=== PATIENT | female | born 1965 | race Caucasian/White ===

== ENCOUNTER 2019-04-02 09:33 | Day surgery (SDC) | payer MEDICAID ==
[~2019-04-02 09:33] MED LIST: Propofol 200 MG/20 ML SDV ONE; Sodium Chloride 0.9% 10 ML Syringe FLUSH PRN
[2019-04-02] MEDS: Lactated Ringers 1,000 ML IV SCH (09:48)
[2019-04-02] MEDS ORDERED: Midazolam 1 MG/ML 2 ML SDV ONE (10:01)
[2019-04-02] MEDS ORDERED: Ondansetron 4 MG/2 ML SDV IVPUSH ONE (10:10)
--- NOTE | 2019-04-02 10:35 | PCM.HPR ---
H & P Addendum review - H & P Addendum Review Date of Original H & P: 03/19/19 Date Reviewed: 04/02/19 Time Reviewed: 09:45 Patient was Examined: No Changes
--- NOTE | 2019-04-02 10:36 | PCM.OPNOTE ---
- General Post-Op/Procedure Note Date of Surgery/Procedure: 04/02/19 Operative Procedure(s): EGD and Colonoscopy Findings: Both Normal Pre Op Diagnosis: Epigastric Pain, colon screening Post-Op Diagnosis: Same Anesthesia Technique: BELLO Primary Surgeon: Balbir Singh Anesthesia Provider: Hina Jenkins Complications: None Condition: Good
[2019-04-02] MEDS ORDERED: Propofol 200 MG/20 ML SDV ONE (12:08)
--- NOTE | 2019-04-02 14:56 | OR ---
Date of Procedure: 04/02/2019 PREOPERATIVE DIAGNOSES: 1. Epigastric pain. 2. Colon screening. POSTOPERATIVE DIAGNOSES: 1. Normal esophagogastroduodenoscopy. 2. Normal colonoscopy. PROCEDURES: 1. Esophagogastroduodenoscopy. 2. Colonoscopy. ANESTHESIA: IV sedation. DESCRIPTION OF PROCEDURE: The patient was brought to the procedure room where she was placed on the left side and IV sedation administered. Oral bite block was placed and the upper endoscope advanced into the esophagus under direct vision without difficulty. Vocal cords were viewed and were normal. The scope was advanced to the third portion of the duodenum. Duodenum and pylorus were normal. Antrum and body of the stomach were normal. Retroflexion reveals a normal-appearing fundus. No hiatal hernia was present. The squamocolumnar junction appeared normal. Air was removed from the stomach and the scope withdrawn through the remaining esophagus which appeared normal. The patient tolerated this portion of the procedure well. Next, colonoscopy was performed after digital rectal exam was done which was normal. Colonoscope was inserted and advanced through a tortuous colon with some difficulty requiring pressure on the abdomen to reach the cecum. Cecum was confirmed by identifying the appendiceal lumen and the ileocecal valve. Prep was good and surfaces were well visualized. Upon withdrawing the scope, the ascending, transverse, and descending colon were normal in appearance. Sigmoid colon was tortuous, but otherwise normal. Rectum was normal and retroflexion was normal. Air was removed and the scope withdrawn. The patient tolerated the procedure well and returned to Recovery in stable condition. Recommend routine colon screening again in 10 years. SAMANTHA BRAY MD /[id number]
== END 2019-04-02 11:38 | disposition home or self-care (01) ==
LOC: LL.SDS 09:33
PROVIDERS: ATTEND Surgery
DX: Z12.11 Encounter for screening for malignant neoplasm of colon (principal); K27.9 Peptic ulcer, site unspecified, unspecified as acute or chronic, without hemorrhage or perforation; R07.9 Chest pain, unspecified; M79.7 Fibromyalgia; E03.9 Hypothyroidism, unspecified; F32.9 Major depressive disorder, single episode, unspecified; Z86.79 Personal history of other diseases of the circulatory system; F17.210 Nicotine dependence, cigarettes, uncomplicated; Z79.899 Other long term (current) drug therapy; Z88.5 Allergy status to narcotic agent
CPT/HCPCS: J2250; J2405; J2704; J7120

== ENCOUNTER 2020-12-10 19:02 | Observation (INO) | payer MEDICAID ==
[2020-12-10] MEDS ORDERED: Sodium Chloride 0.9% 1,000 ML IV ONE ×3 (19:24→20:30)
[2020-12-10] MEDS ORDERED: Ondansetron 4 MG/2 ML SDV IVPUSH ONE (19:26)
[2020-12-10] MEDS ORDERED: Ketorolac 30 MG/ML SDV IVPUSH ONE (19:30)
[2020-12-10] MEDS ORDERED: Morphine 2 MG/ML SYRINGE IVPUSH ONE (20:05)
[2020-12-10] MEDS: Sodium Chloride 0.9% 10 ML Syringe FLUSH SCH ×2 (20:06→22:11)
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
[2020-12-10 20:15] LABS: CHLORIDE,CL 103 mmol/L (98-107); SODIUM,NA 142 mmol/L (136-145)
[2020-12-10] MEDS ORDERED: Acetaminophen 325 MG Tab PO PRN (21:04)
[2020-12-10] MEDS ORDERED: Ketorolac 30 MG/ML SDV IVPUSH PRN ×2 (21:04→21:12)
[2020-12-10] MEDS ORDERED: Ondansetron 4 MG/2 ML SDV IVPUSH PRN (21:04)
[2020-12-10] MEDS ORDERED: LORazepam 2 MG/ML SDV IV PRN (21:04)
[2020-12-10] MEDS ORDERED: Cyclobenzaprine 10 MG Tab PO PRN (21:10)
[2020-12-10] MEDS ORDERED: Morphine 2 MG/ML SYRINGE IVPUSH PRN (21:12)
[2020-12-10] MEDS ORDERED: Loperamide 2 MG Tab PO ONE (21:13)
[2020-12-10] MEDS ORDERED: Loperamide 2 MG Tab PO PRN (21:13)
[2020-12-10] MEDS ORDERED: Prochlorperazine 10 MG/2 ML SDV IVPUSH ONE (21:14)
[2020-12-10] MEDS: Sodium Chloride 0.9% 1,000 ML IV SCH (22:11)
[2020-12-10] MEDS: Pregabalin 75 MG Cap PO PRN (22:37)
[2020-12-11] MEDS: Sodium Chloride 0.9% 10 ML Syringe FLUSH SCH (05:10)
[2020-12-11] MEDS: Sodium Chloride 0.9% 1,000 ML IV SCH (05:14)
[2020-12-11] MEDS ORDERED: Levothyroxine 100 MCG Tab PO SCH (07:30)
[2020-12-11] MEDS ORDERED: DULoxetine 30 MG Cap PO SCH (08:00)
[2020-12-11 08:02] LABS: CHLORIDE,CL 110 mmol/L (98-107); SODIUM,NA 145 mmol/L (136-145)
[2020-12-11] MEDS: Pregabalin 75 MG Cap PO PRN (08:30)
[2020-12-11] MEDS: busPIRone 15 MG Tab PO SCH ×2 (08:31→12:47)
--- NOTE | 2020-12-11 12:28 | PCM.DCSUM1 ---
Discharge Summary - Hospital Course Brief History: Patient admitted for further treatment of dehydration/abdominal pain/diarrhea Diagnosis: Stroke: No - Discharge Data Discharge Date: 12/11/20 Discharge Disposition: Home, Self-Care 01 Condition: Good - Referral to Home Health Primary Care Physician: ZORAIDA Rosenberg - Discharge Diagnosis/Problem(s) (1) Abdominal pain SNOMED Code(s): 99059316 ICD Code: R10.9 - UNSPECIFIED ABDOMINAL PAIN Status: Acute Priority: High Current Visit: Yes Onset Date: ~12/08/20 Problem Details: Normal WBC and unremarkable abdominal/pelvic CT. Accompanying diarrhea/emesis. Suspect at this time etiology most likely viral given history/exam/workup. Diarrhea stopped after patient received Imodium. Unable to collect stool for culture. Abdominal pain much improved today. Patient says she is back to her "baseline fibromyalgia" pain and would like to be discharged. Qualifiers: Abdominal location: generalized Qualified Code(s): R10.84 - Generalized abdominal pain (2) Diarrhea SNOMED Code(s): 09958615 ICD Code: R19.7 - DIARRHEA, UNSPECIFIED Status: Acute Priority: High Current Visit: Yes Onset Date: ~12/08/20 Problem Details: Nonbloody. Negative for occult blood. Immediate improvement with Imodium/no further bowel movements observed. Unable to collect sample for stool culture. Qualifiers: Diarrhea type: unspecified type Qualified Code(s): R19.7 - Diarrhea, unspecified (3) Dehydration SNOMED Code(s): 42302413 ICD Code: E86.0 - DEHYDRATION Status: Acute Priority: High Current Visit: Yes Problem Details: Unable to keep much of any PO intake down for several days. Received IV fluids. Lactic acid normalized after fluid bolus. (4) Fibromyalgia SNOMED Code(s): 536485212 ICD Code: M79.7 - FIBROMYALGIA Status: Chronic Priority: Medium Current Visit: Yes Problem Details: On multiple medications for this. Has been stable. (5) Hypothyroid SNOMED Code(s): 79755048 ICD Code: E03.9 - HYPOTHYROIDISM, UNSPECIFIED Status: Chronic Priority: Low Current Visit: No Qualifiers: Hypothyroidism type: unspecified Qualified Code(s): E03.9 - Hypothyroidism, unspecified - Patient Summary/Data Hospital Course: Patient received medication for nausea, pain, and diarrhea. Diarrhea stopped. Abdominal pain is much improved. Patient feels that she is back to her usual level of daily fibromyalgia-related pain. Would like to go home. BPs have run in lower range but she is not exhibiting any associated symptoms of hypotension. Unable to obtain stool for culture. Suspect most likely had viral gastroenteritis but recommend stool be tested if symptoms return. To follow up as needed. - Patient Instructions Diet: Usual Diet as Tolerated Activity: As Tolerated Showering/Bathing: May Shower Notify Provider of: Fever, Increased Pain, Nausea and/or Vomiting Other/Special Instructions: Rest. Stay hydrated. Advance activity and diet as tolerated. Return to ER or to clinic if symptoms return/new problems develop. - Discharge Plan *PRESCRIPTION DRUG MONITORING PROGRAM REVIEWED*: Not Applicable *COPY OF PRESCRIPTION DRUG MONITORING REPORT IN PATIENT MARCI: Not Applicable Home Medications: Home Meds Celecoxib [CeleBREX] 200 mg PO BID PRN 04/02/19 [History] DULoxetine HCl [Cymbalta] 60 mg PO DAILY 04/02/19 [History] Esomeprazole Magnesium 40 mg PO DAILY 04/02/19 [History] Estrogens, Conjugated [Premarin] 0.3 mg PO DAILY 04/02/19 [History] Levothyroxine [Synthroid] 100 mcg PO ACBREAKFAST 04/02/19 [History] Zolpidem [Ambien] 10 mg PO BEDTIME 04/02/19 [History] traMADol HCl [Tramadol HCl] 50 mg PO Q6H PRN 04/02/19 [History] Melatonin 5 - 10 mg PO BEDTIME 02/04/20 [History] Naproxen Sodium [Aleve] 440 mg PO BID PRN 02/04/20 [History] Cyclobenzaprine [Flexeril] 5 mg PO BID PRN 30 Days #60 tab 02/23/20 [Rx] Ondansetron [Zofran ODT] 4 mg PO Q6H PRN 30 Days #120 tab.dis 07/05/20 [Rx] Pregabalin [Lyrica] 75 mg PO TID PRN 30 Days #135 cap 08/01/20 [Rx] busPIRone [Buspar] 10 mg PO TID 30 Days #90 tab 08/01/20 [Rx] Magnesium 250 mg PO BID 12/10/20 [History] Vitamin B Complex 1 cap PO BEDTIME 12/10/20 [History] Forms: ED Department Discharge Referrals: Neyda Augustine PA [Primary Care Provider] - - Discharge Summary/Plan Comment DC Time >30 min.: No - General Info Date of Service: 12/11/20 Admission Dx/Problem (Free Text: Nausea/emesis/diarrhea/dehydration/abdominal pain Subjective Update: Feels much improved. No further bowel movements. Abdominal pain much better. No emesis. Functional Status: Reports: Pain Controlled, Tolerating Diet, Ambulating, Urinating. Denies: New Symptoms Numeric/FACES Score: 4 - Review of Systems General: Reports: Fatigue. Denies: Fever, Malaise, Chills, Night Sweats HEENT: Denies: Ear Pain, Headaches, Sinus Congestion, Sore Throat Pulmonary: Reports: No Symptoms Cardiovascular: Reports: No Symptoms Gastrointestinal: Reports: Abdominal Pain (much improved), Other (no bowel movement since ER visit). Denies: Difficulty Swallowing, Hematochezia, Melena, Nausea, Vomiting Genitourinary: Denies: Dysuria, Frequency, Pain, Hematuria, Flank Pain Musculoskeletal: Reports: Other (generalized aches she attributes to fibromyalgia) Skin: Reports: No Symptoms Neurological: Reports: No Symptoms Psychiatric: Reports: No Symptoms - Patient Data Vitals - Most Recent: Last Vital Signs Temp 36.8 C 12/11/20 08:00 Pulse 63 12/11/20 08:00 Resp 72 H 12/11/20 08:00 BP 108/76 12/11/20 08:00 Pulse Ox 98 12/11/20 03:40 Weight - Most Recent: 67.67 kg I&O - Last 24 hours: Intake & Output 12/10/20 12/11/20 12/11/20 22:59 06:59 14:59 Intake Total 600 240 Output Total 100 Balance 500 240 Lab Results - Last 24 hrs: Laboratory Results - last 24 hr 12/10/20 12/10/20 12/10/20 Range/Units 19:48 19:48 19:48 WBC 6.8 (4.0-10.2) K/uL RBC 4.31 (3.77-5.09) M/uL Hgb 14.6 (11.7-15.5) g/dL Hct 43.5 (34.0-46.0) % MCV 100.9 H (84.0-98.0) fL MCH 33.9 H (28.2-33.3) pg MCHC 33.6 (31.7-36.0) g/dL RDW 13.0 (11.2-14.1) % Plt Count 177 (150-350) K/uL Neut % (Auto) 48.0 (45.0-80.0) % Lymph % (Auto) 34.0 (10.0-50.0) % [place] % (Auto) 13.5 (2.0-14.0) % Eos % (Auto) 4.1 (0.0-5.0) % Baso % (Auto) 0.4 (0.0-2.0) % Neut # (Auto) 3.28 (1.40-7.00) K/uL Lymph # (Auto) 2.32 (0.50-3.50) K/uL [place] # (Auto) 0.92 (0.00-1.00) K/uL Eos # (Auto) 0.28 (0.00-0.50) K/uL Baso # (Auto) 0.03 (0.00-0.20) K/uL Sodium 142 (136-145) mmol/L Potassium 4.0 (3.5-5.1) mmol/L Chloride 103 (98-107) mmol/L Carbon Dioxide 29.4 (21.0-32.0) mmol/L BUN 8 (7-18) mg/dL Creatinine 0.68 (0.51-1.17) mg/dL Est Cr Clr Drug Dosing 98.84 mL/min Estimated GFR (MDRD) > 60 mL/min Glucose 115 H (70-99) mg/dL Lactic Acid 3.2 H (0.4-2.0) mmol/L Calcium 8.7 (8.5-10.1) mg/dL Magnesium (1.8-2.4) mg/dL Total Bilirubin 0.3 (0.2-1.0) mg/dL AST 24 (15-37) U/L ALT 28 (12-78) U/L Alkaline Phosphatase 70 (46-116) IU/L Troponin I 0.000 (0.000-0.056) ng/mL Total Protein 7.1 (6.4-8.2) g/dL Albumin 3.6 (3.4-5.0) g/dL Amylase 35 (25-115) U/L Lipase 88 (73-393) U/L Specimen Type Urine Color Urine Appearance Urine pH (5.0-9.0) Ur Specific [place] (1.005-1.030) Urine Protein (NEGATIVE) mg/dL Urine Glucose (UA) (NEGATIVE) mg/dL Urine Ketones (NEGATIVE) mg/dL Urine Occult Blood (NEGATIVE) Urine Nitrite (NEGATIVE) Urine Bilirubin (NEGATIVE) Urine Urobilinogen (0.2-1.0) E.U./dL Ur Leukocyte Esterase (NEGATIVE) Urine RBC /HPF Urine WBC /HPF Ur Epithelial Cells /LPF Urine Bacteria (NONE TO FEW) /HPF SARS-CoV-2 RNA (MIMI) (NEGATIVE) 12/10/20 12/11/20 12/11/20 Range/Units 23:15 07:30 07:30 WBC (4.0-10.2) K/uL RBC (3.77-5.09) M/uL Hgb (11.7-15.5) g/dL Hct (34.0-46.0) % MCV (84.0-98.0) fL MCH (28.2-33.3) pg MCHC (31.7-36.0) g/dL RDW (11.2-14.1) % Plt Count (150-350) K/uL Neut % (Auto) (45.0-80.0) % Lymph % (Auto) (10.0-50.0) % [place] % (Auto) (2.0-14.0) % Eos % (Auto) (0.0-5.0) % Baso % (Auto) (0.0-2.0) % Neut # (Auto) (1.40-7.00) K/uL Lymph # (Auto) (0.50-3.50) K/uL [place] # (Auto) (0.00-1.00) K/uL Eos # (Auto) (0.00-0.50) K/uL Baso # (Auto) (0.00-0.20) K/uL Sodium 145 (136-145) mmol/L Potassium 4.1 (3.5-5.1) mmol/L Chloride 110 H (98-107) mmol/L Carbon Dioxide 27.9 (21.0-32.0) mmol/L BUN 8 (7-18) mg/dL Creatinine 0.63 (0.51-1.17) mg/dL Est Cr Clr Drug Dosing 106.68 mL/min Estimated GFR (MDRD) > 60 mL/min Glucose 102 H (70-99) mg/dL Lactic Acid 1.1 (0.4-2.0) mmol/L Calcium 7.6 L (8.5-10.1) mg/dL Magnesium 2.2 (1.8-2.4) mg/dL Total Bilirubin (0.2-1.0) mg/dL AST (15-37) U/L ALT (12-78) U/L Alkaline Phosphatase (46-116) IU/L Troponin I (0.000-0.056) ng/mL Total Protein (6.4-8.2) g/dL Albumin (3.4-5.0) g/dL Amylase (25-115) U/L Lipase (73-393) U/L Specimen Type Urinvoid Urine Color Yellow Urine Appearance Clear Urine pH 7.5 (5.0-9.0) Ur Specific [place] 1.015 (1.005-1.030) Urine Protein Negative (NEGATIVE) mg/dL Urine Glucose (UA) Negative (NEGATIVE) mg/dL Urine Ketones Negative (NEGATIVE) mg/dL Urine Occult Blood Negative (NEGATIVE) Urine Nitrite Negative (NEGATIVE) Urine Bilirubin Negative (NEGATIVE) Urine Urobilinogen 0.2 (0.2-1.0) E.U./dL Ur Leukocyte Esterase Negative (NEGATIVE) Urine RBC 0-5 /HPF Urine WBC 0-5 /HPF Ur Epithelial Cells Few /LPF Urine Bacteria Few (NONE TO FEW) /HPF SARS-CoV-2 RNA (MIMI) (NEGATIVE) 12/11/20 12/11/20 Range/Units 07:30 08:35 WBC 4.0 (4.0-10.2) K/uL RBC 4.01 (3.77-5.09) M/uL Hgb 13.6 (11.7-15.5) g/dL Hct 41.0 (34.0-46.0) % MCV 102.2 H (84.0-98.0) fL MCH 33.9 H (28.2-33.3) pg MCHC 33.2 (31.7-36.0) g/dL RDW 13.1 (11.2-14.1) % Plt Count 131 L (150-350) K/uL Neut % (Auto) 40.2 L (45.0-80.0) % Lymph % (Auto) 39.7 (10.0-50.0) % [place] % (Auto) 14.4 H (2.0-14.0) % Eos % (Auto) 5.2 H (0.0-5.0) % Baso % (Auto) 0.5 (0.0-2.0) % Neut # (Auto) 1.62 (1.40-7.00) K/uL Lymph # (Auto) 1.60 (0.50-3.50) K/uL [place] # (Auto) 0.58 (0.00-1.00) K/uL Eos # (Auto) 0.21 (0.00-0.50) K/uL Baso # (Auto) 0.02 (0.00-0.20) K/uL Sodium (136-145) mmol/L Potassium (3.5-5.1) mmol/L Chloride (98-107) mmol/L Carbon Dioxide (21.0-32.0) mmol/L BUN (7-18) mg/dL Creatinine (0.51-1.17) mg/dL Est Cr Clr Drug Dosing mL/min Estimated GFR (MDRD) mL/min Glucose (70-99) mg/dL Lactic Acid (0.4-2.0) mmol/L Calcium (8.5-10.1) mg/dL Magnesium (1.8-2.4) mg/dL Total Bilirubin (0.2-1.0) mg/dL AST (15-37) U/L ALT (12-78) U/L Alkaline Phosphatase (46-116) IU/L Troponin I (0.000-0.056) ng/mL Total Protein (6.4-8.2) g/dL Albumin (3.4-5.0) g/dL Amylase (25-115) U/L Lipase (73-393) U/L Specimen Type Urine Color Urine Appearance Urine pH (5.0-9.0) Ur Specific [place] (1.005-1.030) Urine Protein (NEGATIVE) mg/dL Urine Glucose (UA) (NEGATIVE) mg/dL Urine Ketones (NEGATIVE) mg/dL Urine Occult Blood (NEGATIVE) Urine Nitrite (NEGATIVE) Urine Bilirubin (NEGATIVE) Urine Urobilinogen (0.2-1.0) E.U./dL Ur Leukocyte Esterase (NEGATIVE) Urine RBC /HPF Urine WBC /HPF Ur Epithelial Cells /LPF Urine Bacteria (NONE TO FEW) /HPF SARS-CoV-2 RNA (MIMI) Negative (NEGATIVE) ELA Results - Last 24 hrs: Microbiology 12/10/20 23:10 Stool Occult Blood (ELA) - Final Stool / Feces NEGATIVE OCCULT BLOOD REFERENCE RANGE: NEGATIVE Med Orders - Current: Current Medications Acetaminophen (Tylenol) 650 mg PO Q4H PRN PRN Reason: Pain (Mild 1-3)/fever Last Admin: 12/11/20 03:27 Dose: 650 mg Documented by: Buspirone HCl (Buspar) 10 mg PO TID [facility] Last Admin: 12/11/20 08:31 Dose: 10 mg Documented by: Cyclobenzaprine HCl (Flexeril) 5 mg PO BID PRN PRN Reason: Muscle Spasm Last Admin: 12/11/20 08:30 Dose: 5 mg Documented by: Duloxetine HCl (Cymbalta) 60 mg PO DAILY [facility] Last Admin: 12/11/20 08:30 Dose: 60 mg Documented by: Sodium Chloride (Normal Saline) 1,000 mls @ 125 mls/hr IV ASDIRECTED [facility] Last Admin: 12/11/20 05:14 Dose: 125 mls/hr Documented by: Ketorolac Tromethamine (Toradol) 15 mg IVPUSH Q6H PRN PRN Reason: Pain (moderate 4-6) Last Admin: 12/11/20 05:09 Dose: 15 mg Documented by: Levothyroxine Sodium (Synthroid) 100 mcg PO ACBREAKFAST [facility] Last Admin: 12/11/20 08:31 Dose: 100 mcg Documented by: Loperamide HCl (Imodium Ad) 2 mg PO Q4H PRN PRN Reason: Diarrhea Lorazepam (Ativan) 1 mg IV Q6H PRN PRN Reason: Nausea/Vomiting Last Admin: 12/10/20 22:55 Dose: 1 mg Documented by: Morphine Sulfate (Morphine) 2 mg IVPUSH Q1H PRN PRN Reason: Pain Ondansetron HCl (Zofran) 4 mg IVPUSH Q6H PRN PRN Reason: Nausea/Vomiting Last Admin: 12/11/20 05:10 Dose: 4 mg Documented by: Pregabalin (Lyrica) 75 mg PO TID PRN PRN Reason: Pain Last Admin: 12/11/20 08:30 Dose: 75 mg Documented by: Sodium Chloride (Saline Flush) 10 ml FLUSH ASDIRECTED [facility] Last Admin: 12/11/20 05:10 Dose: 10 ml Documented by: Discontinued Medications Sodium Chloride (Normal Saline) 1,000 mls @ 999 mls/hr IV .BOLUS ONE Stop: 12/10/20 20:24 Last Admin: 12/10/20 20:02 Dose: 999 mls/hr Documented by: Sodium Chloride (Normal Saline) 1,000 mls @ 999 mls/hr IV .BOLUS ONE Stop: 12/10/20 21:04 Last Admin: 12/11/20 00:05 Dose: Not Given Documented by: Sodium Chloride (Normal Saline) 1,000 mls @ 500 mls/hr IV .BOLUS ONE Stop: 12/10/20 22:29 Last Admin: 12/11/20 00:04 Dose: Not Given Documented by: Influenza Virus Vaccine (Pharmacy To Dose - Influenza Vaccine) 1 each IM ONETIME ONE Stop: 12/10/20 22:18 Ketorolac Tromethamine (Toradol) 30 mg IVPUSH ONETIME ONE Stop: 12/10/20 19:31 Last Admin: 12/10/20 20:01 Dose: 30 mg Documented by: Ketorolac Tromethamine (Toradol) 30 mg IVPUSH Q6H PRN PRN Reason: Pain (moderate 4-6) Loperamide HCl (Imodium Ad) 4 mg PO ONETIME ONE Stop: 12/10/20 21:14 Last Admin: 12/10/20 22:10 Dose: 4 mg Documented by: Morphine Sulfate (Morphine) 2 mg IVPUSH ONETIME ONE Stop: 12/10/20 20:06 Last Admin: 12/10/20 20:18 Dose: 2 mg Documented by: Ondansetron HCl (Zofran) 4 mg IVPUSH ONETIME ONE Stop: 12/10/20 19:27 Last Admin: 12/10/20 19:51 Dose: 4 mg Documented by: Prochlorperazine Edisylate (Compazine) 5 mg IVPUSH ONETIME ONE Stop: 12/10/20 21:15 Last Admin: 12/10/20 22:11 Dose: 5 mg Documented by: - Exam General: Reports: Alert, Oriented, Cooperative HEENT: Reports: Pupils Equal, Pupils Reactive, EOMI, Mucous Membr. Moist/[place]: Reports: Supple Lungs: Reports: Clear to Auscultation, Normal Respiratory Effort Cardiovascular: Reports: Regular Rate, Regular Rhythm GI/Abdominal Exam: Other (bowel sounds present. Diffuse mild discomfort with palpation/nonfocal/much improved compared to last night.) Back Exam: Denies: CVA Tenderness (L), CVA Tenderness (R), Muscle Spasm Extremities: Normal Range of Motion, No Pedal Edema, Normal Capillary Refill Skin: Reports: Warm, Dry Neurological: Reports: No New Focal Deficit Psy/Mental Status: Reports: Alert, Normal Affect, Normal Mood
== END 2020-12-11 13:05 | disposition home or self-care (01) ==
LOC: LL.ED 19:02 → LL.MS 21:03 → UNDOADMOB 21:03 → LL.MS 21:12
PROVIDERS: ADMIT Emergency Medicine; ATTEND Emergency Medicine
DX: R10.84 Generalized abdominal pain (principal); E86.0 Dehydration; M79.7 Fibromyalgia; E03.9 Hypothyroidism, unspecified; Z88.8 Allergy status to other drugs, medicaments and biological substances; Z79.890 Hormone replacement therapy; Z79.899 Other long term (current) drug therapy; Z87.442 Personal history of urinary calculi; Z98.890 Other specified postprocedural states; Z20.822 Contact with and (suspected) exposure to COVID-19
CPT/HCPCS: 36415; 74176; 80048; 80053; 81001; 82150; 82272; 83605; 83690; 83735; 84484; 85025; 87635; 93005; 96374; 96375; 99285; A9270; J0780; J1885; J2060; J2270; J2405; J7030; 93010; 96376; 99217; 99219; G0378; U0002

== ENCOUNTER 2023-06-18 08:42 | Inpatient (IN) | payer MEDICAID, MEDICARE ==
[2023-06-18] MEDS ORDERED: oxyCODONE 5 MG Tab PO ONE (13:28)
[2023-06-18] MEDS ORDERED: Ondansetron 4 MG Tab.DIS PO PRN (13:45)
[2023-06-18] MEDS: hydrOXYzine Pamoate 25 MG Cap PO PRN (17:12)
[2023-06-18] MEDS: Acetaminophen 500 MG Tab PO PRN (17:13)
[2023-06-18] MEDS: Cyclobenzaprine 10 MG Tab PO SCH (17:13)
[2023-06-18] MEDS: oxyCODONE 5 MG Tab PO PRN (19:17)
[2023-06-18] MEDS: Zolpidem 5 MG Tab PO SCH (20:05)
[2023-06-18] MEDS: Pregabalin 100 MG Cap PO SCH (20:05)
[2023-06-18] MEDS: Morphine 15 MG Tab.ER PO SCH (20:05)
[2023-06-18] MEDS: busPIRone 15 MG Tab PO SCH (20:05)
[2023-06-19] MEDS: Acetaminophen 500 MG Tab PO PRN ×3 (03:05→17:38)
[2023-06-19] MEDS: oxyCODONE 5 MG Tab PO PRN ×3 (03:06→17:38)
[2023-06-19] MEDS ORDERED: Levothyroxine 100 MCG Tab PO SCH (07:30)
[2023-06-19] MEDS: Pantoprazole 40 MG Tab.CR PO SCH (07:54)
[2023-06-19] MEDS: busPIRone 15 MG Tab PO SCH ×4 (07:54→20:26)
[2023-06-19] MEDS: Polyethylene Glycol 3350 Powder 17 GM Packet PO SCH (07:54)
[2023-06-19] MEDS: DULoxetine 30 MG Cap PO SCH (07:54)
[2023-06-19] MEDS: Cyclobenzaprine 10 MG Tab PO SCH ×2 (07:55→17:16)
[2023-06-19] MEDS: Diazepam 5 MG Tab PO PRN (07:55)
[2023-06-19] MEDS: Levothyroxine 100 MCG Tab PO SCH (07:55)
[2023-06-19] MEDS: Pregabalin 100 MG Cap PO SCH ×4 (07:55→20:26)
[2023-06-19] MEDS: Morphine 15 MG Tab.ER PO SCH ×2 (07:56→20:27)
[2023-06-19] MEDS: Levothyroxine 25 MCG Tab PO SCH (07:56)
[2023-06-19] MEDS: Lidocaine 4% 1 each Patch TOP SCH (07:56)
[2023-06-19] MEDS: hydrOXYzine Pamoate 25 MG Cap PO PRN (15:24)
[2023-06-19] MEDS: Zolpidem 5 MG Tab PO SCH (20:26)
[2023-06-20] MEDS: Acetaminophen 500 MG Tab PO PRN ×3 (01:22→18:30)
[2023-06-20] MEDS: oxyCODONE 5 MG Tab PO PRN ×3 (03:46→17:33)
[2023-06-20] MEDS: hydrOXYzine Pamoate 25 MG Cap PO PRN ×2 (03:47→18:30)
[2023-06-20 08:01] LABS: BASOPHILS ABSOLUTE AUTO 0.03 K/uL (0.00-0.20); BASOPHILS PERCENT AUTO 0.4 % (0.0-2.0); EOSINOPHILS ABSOLUTE AUTO 0.17 K/uL (0.00-0.50); EOSINOPHILS PERCENT AUTO 2.4 % (0.0-5.0); HEMATOCRIT 35.4 % (34.0-46.0); HEMOGLOBIN 11.4 g/dL (11.7-15.5); LYMPHOCYTES ABSOLUTE AUTO 2.56 K/uL (0.50-3.50); LYMPHOCYTES PERCENT AUTO 35.8 % (10.0-50.0); MEAN CORPUSCULAR HGB CONC 32.2 g/dL (31.7-36.0); MEAN CORPUSCULAR VOLUME 99.4 fL (84.0-98.0); MONOCYTES ABSOLUTE AUTO 0.95 K/uL (0.00-1.00); MONOCYTES PERCENT AUTO 13.3 % (2.0-14.0); NEUTROPHILS ABSOLUTE AUTO 3.45 K/uL (1.40-7.00); NEUTROPHILS PERCENT AUTO 48.1 % (45.0-80.0); PLATELET COUNT,PLT 423 K/uL (150-350); RED BLOOD CELL COUNT 3.56 M/uL (3.77-5.09); RED CELL DISTRIBUTION WIDTH 14.2 % (11.2-14.1); WHITE BLOOD CELL COUNT,WBC 7.2 K/uL (4.0-10.2)
[2023-06-20] MEDS: Polyethylene Glycol 3350 Powder 17 GM Packet PO SCH (08:07)
[2023-06-20] MEDS: Morphine 15 MG Tab.ER PO SCH ×2 (08:10→20:48)
[2023-06-20] MEDS: Lidocaine 4% 1 each Patch TOP SCH (08:10)
[2023-06-20] MEDS: Levothyroxine 25 MCG Tab PO SCH (08:11)
[2023-06-20] MEDS: busPIRone 15 MG Tab PO SCH ×3 (08:11→20:49)
[2023-06-20] MEDS: Diazepam 5 MG Tab PO PRN (08:12)
[2023-06-20] MEDS: Pregabalin 100 MG Cap PO SCH ×3 (08:12→20:50)
[2023-06-20] MEDS: DULoxetine 30 MG Cap PO SCH (08:12)
[2023-06-20] MEDS: Pantoprazole 40 MG Tab.CR PO SCH (08:12)
[2023-06-20] MEDS: Cyclobenzaprine 10 MG Tab PO SCH ×2 (08:13→17:34)
[2023-06-20] MEDS: Levothyroxine 100 MCG Tab PO SCH (08:13)
[2023-06-20] MEDS: Zolpidem 5 MG Tab PO SCH (20:49)
[2023-06-20] MEDS: Diclofenac Sodium 1% Gel 100 GM Tube TOP SCH (20:50)
[2023-06-21] MEDS: Diclofenac Sodium 1% Gel 100 GM Tube TOP SCH ×5 (02:37→20:07)
[2023-06-21] MEDS: oxyCODONE 5 MG Tab PO PRN ×3 (06:23→17:21)
[2023-06-21] MEDS: Pregabalin 100 MG Cap PO SCH ×3 (07:12→20:03)
[2023-06-21] MEDS: Levothyroxine 100 MCG Tab PO SCH (07:12)
[2023-06-21] MEDS: Lidocaine 4% 1 each Patch TOP SCH (07:12)
[2023-06-21] MEDS: busPIRone 15 MG Tab PO SCH ×3 (07:12→19:59)
[2023-06-21] MEDS: Levothyroxine 25 MCG Tab PO SCH (07:13)
[2023-06-21] MEDS: DULoxetine 30 MG Cap PO SCH (07:13)
[2023-06-21] MEDS: Morphine 15 MG Tab.ER PO SCH ×2 (07:14→20:01)
[2023-06-21] MEDS: Pantoprazole 40 MG Tab.CR PO SCH (07:14)
[2023-06-21] MEDS: Cyclobenzaprine 10 MG Tab PO SCH ×2 (07:14→17:21)
[2023-06-21] MEDS: Polyethylene Glycol 3350 Powder 17 GM Packet PO SCH (07:15)
[2023-06-21] MEDS: Acetaminophen 500 MG Tab PO PRN ×2 (11:01→16:18)
[2023-06-21] MEDS: Zolpidem 5 MG Tab PO SCH (20:00)
[2023-06-22] MEDS: oxyCODONE 5 MG Tab PO PRN ×4 (00:48→15:32)
[2023-06-22] MEDS: Acetaminophen 500 MG Tab PO PRN ×2 (02:55→14:04)
[2023-06-22] MEDS: Diclofenac Sodium 1% Gel 100 GM Tube TOP SCH ×4 (02:57→19:05)
[2023-06-22] MEDS: hydrOXYzine Pamoate 25 MG Cap PO PRN (06:18)
[2023-06-22] MEDS: Morphine 15 MG Tab.ER PO SCH ×2 (07:33→19:02)
[2023-06-22] MEDS: Cyclobenzaprine 10 MG Tab PO SCH ×3 (07:34→17:59)
[2023-06-22] MEDS: Pregabalin 100 MG Cap PO SCH ×3 (07:34→19:02)
[2023-06-22] MEDS: Levothyroxine 100 MCG Tab PO SCH (07:34)
[2023-06-22] MEDS: DULoxetine 30 MG Cap PO SCH (07:35)
[2023-06-22] MEDS: Levothyroxine 25 MCG Tab PO SCH (07:35)
[2023-06-22] MEDS: busPIRone 15 MG Tab PO SCH ×3 (07:35→19:03)
[2023-06-22] MEDS: Lidocaine 4% 1 each Patch TOP SCH (08:53)
[2023-06-22] MEDS: Polyethylene Glycol 3350 Powder 17 GM Packet PO SCH (08:53)
[2023-06-22] MEDS: Pantoprazole 40 MG Tab.CR PO SCH (11:43)
[2023-06-22] MEDS: Zolpidem 5 MG Tab PO SCH (19:02)
[2023-06-22] MEDS ORDERED: hydrOXYzine Pamoate 25 MG Cap PO SCH (20:00)
[2023-06-23] MEDS: oxyCODONE 5 MG Tab PO PRN ×3 (02:56→17:42)
[2023-06-23] MEDS: Diclofenac Sodium 1% Gel 100 GM Tube TOP SCH ×4 (05:56→19:42)
[2023-06-23] MEDS: Acetaminophen 500 MG Tab PO PRN ×2 (06:10→14:23)
[2023-06-23] MEDS: Lidocaine 4% 1 each Patch TOP SCH (07:04)
[2023-06-23] MEDS: Cyclobenzaprine 10 MG Tab PO SCH ×3 (07:48→17:42)
[2023-06-23] MEDS: hydrOXYzine Pamoate 25 MG Cap PO SCH ×2 (07:49→19:39)
[2023-06-23] MEDS: DULoxetine 30 MG Cap PO SCH (07:50)
[2023-06-23] MEDS: Pantoprazole 40 MG Tab.CR PO SCH (07:50)
[2023-06-23] MEDS: Levothyroxine 100 MCG Tab PO SCH (07:51)
[2023-06-23] MEDS: Levothyroxine 25 MCG Tab PO SCH (07:52)
[2023-06-23] MEDS: Morphine 15 MG Tab.ER PO SCH ×2 (07:52→19:42)
[2023-06-23] MEDS: Polyethylene Glycol 3350 Powder 17 GM Packet PO SCH (07:53)
[2023-06-23] MEDS: Pregabalin 100 MG Cap PO SCH ×3 (07:53→19:41)
[2023-06-23] MEDS: busPIRone 15 MG Tab PO SCH ×3 (08:01→19:40)
[2023-06-23] MEDS: Zolpidem 5 MG Tab PO SCH (19:42)
[2023-06-24] MEDS: oxyCODONE 5 MG Tab PO PRN ×3 (02:46→16:50)
[2023-06-24] MEDS: Diclofenac Sodium 1% Gel 100 GM Tube TOP SCH ×4 (02:46→19:55)
[2023-06-24] MEDS: Acetaminophen 500 MG Tab PO PRN ×2 (04:37→13:42)
[2023-06-24] MEDS: Diazepam 5 MG Tab PO PRN (05:56)
[2023-06-24] MEDS: Pregabalin 100 MG Cap PO SCH ×3 (08:07→19:53)
[2023-06-24] MEDS: Morphine 15 MG Tab.ER PO SCH ×2 (08:07→19:53)
[2023-06-24] MEDS: Cyclobenzaprine 10 MG Tab PO SCH ×3 (08:08→17:23)
[2023-06-24] MEDS: DULoxetine 30 MG Cap PO SCH (08:09)
[2023-06-24] MEDS: busPIRone 15 MG Tab PO SCH ×3 (08:09→19:53)
[2023-06-24] MEDS: Levothyroxine 25 MCG Tab PO SCH (08:10)
[2023-06-24] MEDS: hydrOXYzine Pamoate 25 MG Cap PO SCH ×2 (08:11→19:53)
[2023-06-24] MEDS: Levothyroxine 100 MCG Tab PO SCH (08:11)
[2023-06-24] MEDS: Lidocaine 4% 1 each Patch TOP SCH (08:12)
[2023-06-24] MEDS: Pantoprazole 40 MG Tab.CR PO SCH (08:12)
[2023-06-24] MEDS: Polyethylene Glycol 3350 Powder 17 GM Packet PO SCH (08:17)
[2023-06-24] MEDS: Zolpidem 5 MG Tab PO SCH (19:53)
[2023-06-25] MEDS: Acetaminophen 500 MG Tab PO PRN ×3 (02:18→17:29)
[2023-06-25] MEDS: Diclofenac Sodium 1% Gel 100 GM Tube TOP SCH ×3 (02:18→14:16)
[2023-06-25] MEDS: oxyCODONE 5 MG Tab PO PRN ×3 (04:06→14:16)
[2023-06-25] MEDS: Diazepam 5 MG Tab PO PRN (06:00)
[2023-06-25] MEDS: Polyethylene Glycol 3350 Powder 17 GM Packet PO SCH (07:42)
[2023-06-25] MEDS: Lidocaine 4% 1 each Patch TOP SCH (07:42)
[2023-06-25] MEDS: Cyclobenzaprine 10 MG Tab PO SCH ×3 (07:43→17:29)
[2023-06-25] MEDS: Pregabalin 100 MG Cap PO SCH ×3 (07:43→20:08)
[2023-06-25] MEDS: DULoxetine 30 MG Cap PO SCH (07:43)
[2023-06-25] MEDS: busPIRone 15 MG Tab PO SCH ×3 (07:44→20:08)
[2023-06-25] MEDS: Morphine 15 MG Tab.ER PO SCH (07:45)
[2023-06-25] MEDS: hydrOXYzine Pamoate 25 MG Cap PO SCH (07:45)
[2023-06-25] MEDS: Pantoprazole 40 MG Tab.CR PO SCH (07:46)
[2023-06-25] MEDS: Levothyroxine 25 MCG Tab PO SCH (07:47)
[2023-06-25] MEDS: Levothyroxine 100 MCG Tab PO SCH (07:47)
[2023-06-25] MEDS ORDERED: Morphine 15 MG Tab.ER PO ONE (20:00)
[2023-06-25] MEDS: Zolpidem 5 MG Tab PO SCH (20:06)
[2023-06-26] MEDS: Cyclobenzaprine 10 MG Tab PO SCH ×3 (07:46→18:18)
[2023-06-26] MEDS: busPIRone 15 MG Tab PO SCH ×3 (07:47→19:20)
[2023-06-26] MEDS: Pantoprazole 40 MG Tab.CR PO SCH (07:47)
[2023-06-26] MEDS: Pregabalin 100 MG Cap PO SCH ×3 (07:48→19:20)
[2023-06-26] MEDS: Acetaminophen 650 MG Tab.ER PO SCH ×3 (07:49→23:18)
[2023-06-26] MEDS: Polyethylene Glycol 3350 Powder 17 GM Packet PO SCH (07:50)
[2023-06-26] MEDS: DULoxetine 30 MG Cap PO SCH (07:51)
[2023-06-26] MEDS: Lidocaine 4% 1 each Patch TOP SCH (08:29)
[2023-06-26] MEDS: oxyCODONE 5 MG Tab PO PRN ×2 (10:39→14:48)
[2023-06-26] MEDS: Levothyroxine 100 MCG Tab PO SCH (11:41)
[2023-06-26] MEDS: Levothyroxine 25 MCG Tab PO SCH (11:41)
[2023-06-26] MEDS: hydrOXYzine Pamoate 25 MG Cap PO PRN (16:21)
[2023-06-26] MEDS: Zolpidem 5 MG Tab PO SCH (19:20)
[2023-06-27] MEDS: oxyCODONE 5 MG Tab PO PRN ×2 (04:06→07:57)
[2023-06-27] MEDS: Cyclobenzaprine 10 MG Tab PO SCH (07:55)
[2023-06-27] MEDS: Pantoprazole 40 MG Tab.CR PO SCH (07:55)
[2023-06-27] MEDS: Lidocaine 4% 1 each Patch TOP SCH (07:56)
[2023-06-27] MEDS: DULoxetine 30 MG Cap PO SCH (07:56)
[2023-06-27] MEDS: busPIRone 15 MG Tab PO SCH (07:56)
[2023-06-27] MEDS: Polyethylene Glycol 3350 Powder 17 GM Packet PO SCH (07:57)
[2023-06-27] MEDS: Pregabalin 100 MG Cap PO SCH (07:57)
[2023-06-27] MEDS: Acetaminophen 650 MG Tab.ER PO SCH (07:58)
[2023-06-27] MEDS: hydrOXYzine Pamoate 25 MG Cap PO PRN (08:05)
[2023-06-27] MEDS: Levothyroxine 100 MCG Tab PO SCH (11:49)
[2023-06-27] MEDS: Levothyroxine 25 MCG Tab PO SCH (11:49)
== END 2023-06-27 11:30 | disposition home health service (06) | DRG 561 ==
LOC: LL.MS 12:16
PROVIDERS: ADMIT Emergency Medicine; ATTEND Nurse Practitioner Family
DX: Z47.89 Encounter for other orthopedic aftercare (principal); R53.81 Other malaise; M79.7 Fibromyalgia; M23.52 Chronic instability of knee, left knee; M46.1 Sacroiliitis, not elsewhere classified; E03.9 Hypothyroidism, unspecified; F32.A Depression, unspecified; F41.9 Anxiety disorder, unspecified; G89.4 Chronic pain syndrome; G47.00 Insomnia, unspecified; R29.6 Repeated falls; K21.9 Gastro-esophageal reflux disease without esophagitis; M19.90 Unspecified osteoarthritis, unspecified site; Z87.11 Personal history of peptic ulcer disease; Z88.5 Allergy status to narcotic agent; Z87.891 Personal history of nicotine dependence; Z98.51 Tubal ligation status; Z98.890 Other specified postprocedural states; Z98.1 Arthrodesis status; Z79.899 Other long term (current) drug therapy; Z90.710 Acquired absence of both cervix and uterus
CPT/HCPCS: 36415; 85025; 97110-GP; 97162-GP; 97165-GO; 97530-GO; 97530-GP; 97535-GO; A9270-GY; J7509; Q0177

== ENCOUNTER 2025-09-25 10:25 | Emergency (ER) | payer MEDICARE, OTHER ==
[2025-09-25] MEDS ORDERED: Sodium Chloride 0.9% 10 ML Syringe FLUSH PRN (10:26)
[2025-09-25 11:03] LABS: BASOPHILS ABSOLUTE AUTO 0.04 K/uL (0.00-0.20); BASOPHILS PERCENT AUTO 0.2 % (0.0-2.0); EOSINOPHILS ABSOLUTE AUTO 0.01 K/uL (0.00-0.50); EOSINOPHILS PERCENT AUTO 0.1 % (0.0-5.0); IMMATURE GRAN ABSOLUTE AUTO 0.04 10^3/uL (0.00-0.04); IMMATURE GRAN PERCENT AUTO 0.2 % (0.0-0.4); LYMPHOCYTES ABSOLUTE AUTO 0.59 K/uL (0.50-3.50); LYMPHOCYTES PERCENT AUTO 3.3 % (10.0-50.0); MONOCYTES ABSOLUTE AUTO 2.07 K/uL (0.00-1.00); MONOCYTES PERCENT AUTO 11.7 % (2.0-14.0); NEUTROPHILS ABSOLUTE AUTO 14.94 K/uL (1.40-7.00); NEUTROPHILS PERCENT AUTO 84.5 % (45.0-80.0); PLATELET COUNT,PLT 171 K/uL (150-350); RED BLOOD CELL COUNT 4.74 M/uL (3.77-5.09); RED CELL DISTRIBUTION WIDTH 13.0 % (11.2-14.1); WHITE BLOOD CELL COUNT,WBC 17.7 K/uL (4.0-10.2)
[2025-09-25] MEDS: LORazepam 2 MG/ML SDV IVPUSH ONE ×3 (11:03→11:27)
[2025-09-25] MEDS ORDERED: LORazepam 2 MG/ML SDV IVPUSH PRN (11:03)
[2025-09-25] MEDS: Ondansetron 4 MG/2 ML SDV IVPUSH ONE (11:10)
[2025-09-25 11:23] LABS: INR 1.2 (0.9-1.1); PTT,PARTIAL THROMBOPLSTIN TIME 24.1 SEC (23.8-34.4)
[2025-09-25 11:34] LABS: ALANINE AMINOTRANSFERASE,ALT 87 U/L (12-78); ASPARTATE AMNIOTRANSFERASE,AST 161 U/L (15-37); BILIRUBIN TOTAL 0.4 mg/dL (0.2-1.0); BLOOD UREA NITROGEN,BUN 27 mg/dL (7-18); CARBON DIOXIDE,CO2 26.4 mmol/L (21.0-32.0); CHLORIDE,CL 105 mmol/L (98-107); CREATININE 1.88 mg/dL (0.51-1.17); GLUCOSE RANDOM 108 mg/dL (70-99); POTASSIUM,K 4.8 mmol/L (3.5-5.1); PROTEIN TOTAL,TP 7.8 g/dL (6.4-8.2); SODIUM,NA 146 mmol/L (136-145)
[2025-09-25 11:35] LABS: CREATINE KINASE,CK 2220 U/L (26-308); ESTIMATED GFR 30 mL/min (>=60)
[2025-09-25 11:36] LABS: ETHANOL BLOOD MEDICAL < 0.000 g/dL (0.000-0.080)
[2025-09-25 12:01] LABS: TSH ULTRASENSITIVE 3.202 mIU/mL (0.358-3.740)
[2025-09-25 12:21] LABS: APPEARANCE,URINE CLOUDY; GLUCOSE,URINE NEGATIVE (NEGATIVE); OCCULT BLOOD,URINE LARGE (NEGATIVE)
[2025-09-25 12:32] LABS: AMPHETAMINES SCREEN, URINE NEGATIVE (NEGATIVE); COCAINE METABOLITES,URINE NEGATIVE (NEGATIVE); EDDP,URINE SCREEN NEGATIVE (NEGATIVE); METHAMPHETAMINES SCREEN, URINE NEGATIVE (NEGATIVE); TCA SCREEN,URINE POSITIVE (NEGATIVE); THC SCREEN,URINE 50 NG/ML NEGATIVE (NEGATIVE)
[2025-09-25 12:39] LABS: BUPRENORPHINE SCREEN,URINE NEGATIVE (NEGATIVE); OXYCODONE SCREEN,URINE POSITIVE (NEGATIVE)
[2025-09-25] MEDS: LORazepam 2 MG/ML SDV ONE ×2 (14:05)
[2025-09-25] MEDS: Ondansetron 4 MG/2 ML SDV ONE (14:06)
[2025-09-25] MEDS ORDERED: Lactated Ringers 1,000 ML IV SCH (16:00)
== END 2025-09-25 16:25 ==
LOC: LL.ED 10:25
DX: T40.601A Poisoning by unspecified narcotics, accidental (unintentional), initial encounter (principal); G89.4 Chronic pain syndrome; D72.829 Elevated white blood cell count, unspecified; R74.02 Elevation of levels of lactic acid dehydrogenase [LDH]; E86.0 Dehydration; E03.9 Hypothyroidism, unspecified; Z88.5 Allergy status to narcotic agent; Z79.899 Other long term (current) drug therapy; Z90.710 Acquired absence of both cervix and uterus; Z79.890 Hormone replacement therapy; Z88.8 Allergy status to other drugs, medicaments and biological substances
CPT/HCPCS: 36415; 70450; 71045; 72020; 72170; 80053; 80143; 80179; 80305-QW; 80307; 81001; 82550; 83605; 83735; 84443; 84484; 85025; 85610; 85730; 93005; 93010; 96361; 96365; 96375; 99284; 99285-25; J0456; J0696; J1630; J2060; J2312; J2405; J7030; J7050